=== PATIENT | male | born 1995 | race Caucasian/White ===

== ENCOUNTER 2025-01-09 10:50 | Outpatient (CLI) | payer BC ==
[2025-01-09 11:11] LABS: MEAN PLATELET VOLUME 8.2 FL (7.4-10.4); RED CELL DISTRIBUTION WIDTH 13.7 % (11.5-14.5)
[2025-01-09 11:22] LABS: CREATININE 0.98 MG/DL (0.60-1.10); TOTAL CARBON DIOXIDE 29.5 MMOL/L (24-32); eGFR 89 ML/MIN
== END 2025-01-09 23:59 | disposition home or self-care (01) ==
LOC: LAB 10:50
PROVIDERS: ATTEND Student in an Organized Health Care Education/Training Program
DX: R53.83 Other fatigue (principal)
CPT/HCPCS: 36415; 80053; 85025